=== PATIENT | female | born 1980 ===

== ENCOUNTER 2016-09-18 12:32 | Inpatient (IN) | payer MEDICAID ==
[2016-09-18 13:02] VITALS: BMI 34.3
[2016-09-18] MEDS ORDERED: ceFAZolin 2 GM in Sodium Chloride 0.9% 100 ML IVPB ONE ×2 (13:07→14:30)
[2016-09-18] MEDS: Lactated Ringer's 1,000 ML IV SCH ×2 (13:10→14:00)
[2016-09-18] MEDS ORDERED: Sodium Chloride 0.9% 1,000 ML IV SCH (13:15)
[2016-09-18 14:12] LABS: BASO % 0.4 % (0.0-2.0); EOS # 0.1 K/uL (0.0-0.7); EOS % 1.3 % (0.0-4.0); LYMPH # 1.6 K/uL (1.0-4.3); LYMPH % 17.3 % (20.0-40.0); MEAN CELL VOLUME 92.6 fl (81.0-99.0); MEAN CORPUSCULAR HEMOGLOBIN 31.1 pg (27.0-31.0); MEAN CORPUSCULAR HGB CONC 33.5 g/dL (33.0-37.0); MEAN PLATELET VOLUME 8.3 fl (7.2-11.7); MONO # 0.5 K/uL (0.0-0.8); MONO % 5.5 % (0.0-10.0); NEUT # 6.9 K/uL (1.8-7.0); NEUT % 75.5 % (50.0-75.0); RED CELL DISTRIBUTION WIDTH 13.5 % (11.5-14.5); WHITE BLOOD COUNT 9.1 K/uL (4.8-10.8)
[2016-09-18] MEDS ORDERED: Oxytocin 30 units/LR 500ML 30 U/500 ML BAG IV ONE (14:12)
[2016-09-18] MEDS ORDERED: Oxytocin 20 units in LR 2,000 ML IV ONE (14:12)
--- NOTE | 2016-09-18 14:38 | OBADHP ---
Datetime: 09/18/2016 13:22 Admit Comment, IP Provider: 35 yo at 39 weeks GA, OPAL 09/25/16 confirmed with 2nd trimester US pr esents to [facility] for scheduled repeat . pt had previous 3 with no complications. rep orts +FM. denies VB, CTX or LOF. denies headache, dizziness, nausea, vomiting, chest pain, dyspnea or leg swelling. pt is GBS neg. past ob hx: x 3, last one in 2014 at 39 weeks with baby's wt 8 lbs 2 oz. 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 past sx hx: none social hx: denies smoking, drinking alcohol or recreational drug use. allergies: no drug allergies, allergies to apples, peach and cherries...causes rash. Assessment: 35 yo at 39 weeks GA, OPAL 09/25/16 confirmed with 2nd trimester US presents to [facility] for scheduled repeat . Plan: Admit to unit initiate scheduled protocol. IV fluids continue heart monitor cbc type and screen Sultan Barajas, PGY 1 Pelvic Type - PN: Adequate Extremities - PN: Normal Abdomen - PN: Normal Back - PN: Normal Lungs - PN: Normal Heart - PN: Normal Neurologic - PN: Normal HEENT - PN: Normal General - PN: Normal FHR - Baseline A Provider: 135 Gestation - Est Wks by US: 39.0 IP Hx Assessment: The History has been Reviewed and is Current Vital Signs Provider: Reviewed IP Chief Complaint: Scheduled Section NICHD Variability Prov Fetus A: Moderate 6-25bpm NICHD Accel Fetus A IP Provider: [id number] FHR Category Provider Fetus A: Category I NICHD Decel Fetus A IP Provider: None Genitourinary Exam: Normal DTRs - PN: Normal IP Adm Impression: Term, intrauterine ; No Active Labor IP Admit Plan: Admit to unit; Initiate Section protocol
[2016-09-18] MEDS ORDERED: Morphine 5 mg/10 ml preservative-free Inj(Duramorph) ONE (14:40)
[2016-09-18] MEDS ORDERED: DiphenhydrAMINE 50 mg/ml Inj IVP PRN (15:36)
[2016-09-18] MEDS ORDERED: Oxytocin 30 units/LR 500ML 30 U/500 ML BAG IV SCH (17:31)
[2016-09-18] MEDS ORDERED: Oxycodone/Acetaminophen 5/325 mg Tab PO PRN ×2 (17:31)
[2016-09-18 20:39] LABS: HEMATOCRIT 27.9 % (34.0-47.0); MEAN CELL VOLUME 93.1 fl (81.0-99.0); MEAN CORPUSCULAR HEMOGLOBIN 30.9 pg (27.0-31.0); MEAN CORPUSCULAR HGB CONC 33.2 g/dL (33.0-37.0); RED CELL DISTRIBUTION WIDTH 13.6 % (11.5-14.5); WHITE BLOOD COUNT 14.5 K/uL (4.8-10.8)
[2016-09-19] MEDS ORDERED: Lactated Ringer's 1,000 ML IV SCH (03:30)
[2016-09-19 06:17] LABS: HEMATOCRIT 26.4 % (34.0-47.0); MEAN CELL VOLUME 93.4 fl (81.0-99.0); MEAN CORPUSCULAR HEMOGLOBIN 31.3 pg (27.0-31.0); MEAN CORPUSCULAR HGB CONC 33.5 g/dL (33.0-37.0); RED CELL DISTRIBUTION WIDTH 13.6 % (11.5-14.5)
--- NOTE | 2016-09-19 14:11 | OP ---
PROCEDURE DATE: 09/18/2016 PREOPERATIVE DIAGNOSIS: Term with previous section x3, desires permanent sterilization. POSTOPERATIVE DIAGNOSIS: Term with previous section x3, desires permanent sterilization. Delivered. PROCEDURE: Repeat Section, Bilateral Tubal Ligation, Lysis of Adhesions SURGEON: Dr. Mario Vásquez. RESTAURANT KITCHEN AND SERVICE MANAGER: Dr. Sebastian Scott TYPE OF ANESTHESIA: Spinal. ESTIMATED BLOOD LOSS: 1000 mL. INTRAVENOUS FLUID: 1600 mL lactated Ringer's. URINE OUTPUT: 500 mL, clear after procedure. CLOSURE: Shantell. COMPLICATIONS: None. FINDINGS: A live female with Apgars of 9 and 9, delivered at 3:19 p.m. in vertex presentation with amniotic fluid clear, weighs 3520 grams. DESCRIPTION OF PROCEDURE: The patient was taken to the operating room and given spinal anesthesia without difficulty. She was then prepped and draped in the normal sterile fashion in a dorsal supine position with leftward tilt. A Pfannenstiel skin incision was then made to the previous scar with the scalpel and carried through the underlying fascia with the Bovie. The fascia was then incised in the midline and this incision was extended laterally using the Bovie. The inferior aspect of the fascial incision was then grasped with Lenora clamps, elevated and the underlying rectus muscles were dissected off sharply with the Bovie, then bluntly. Attention was then turned to the superior aspect of the fascial incision, which in a similar fashion, was dissected off with the Bovie, then bluntly. The rectus muscles were then meticulously in the midline. The peritoneum was then entered bluntly. At this time, multiple adhesions of the omentum were then seen to the anterior abdominal wall. These were then taken down with free ties and cautery. Bleeding vessels on the muscle were then also identified at this time and these were also ligated, and with this, good hemostasis was then noted. Adhesions of the bladder to the lower uterine segment was also identified and this was taken down meticulously after which the bladder blade was inserted. The lower uterine segment was identified and entered in a transverse fashion with the scalpel. This incision was then extended cephalocaudally, bluntly and the membranes were then ruptured, the was delivered atraumatically. The nose and mouth were suctioned on the abdomen. The cord was doubly clamped and cut, and the was handed off to the waiting delivery coordinator. Cord blood was then taken. The adhesions to the fundus of the uterus were then taken down meticulously using the Metzenbaum scissors and cautery. After this, the uterus was exteriorized and cleared off all clots and debris. The uterine incision was then closed with 1 Vicryl in a running locked fashion, and two further [id number] sutures were then placed. Good hemostasis was noted. Following this, copious irrigation was performed. The attention was then turned to the tubes at which time a tubal ligation was performed using a 2-0 chromic suture, for a darion procedure bilaterally. The segments on the right and left tube were handed off of the field for pathology and hemostasis was achieved at the cut portion of the tube using the cautery. Irrigation was then performed and the uterus was returned to the abdomen. The gutters were cleared off all clots and debris. Inspection of the uterine incision and the site of the bilateral tubal ligation revealed good hemostasis. The muscle and peritoneum were then re-approximated using a 2-0 Vicryl suture in a running fashion. Good hematosis was noted. The fascia was approximated using 0 Vicryl in a running fashion bilaterally to the midline. The Bovie was used to obtain good hemostasis on the subcutaneous fat layer and this layer was also closed with three interrupted stitches using a 3-0 plain suture. The skin was then closed with shantell and the incision was covered with a sterile dressing. The patient tolerated the procedure well. Sponge, lap, and needle counts were correct x4. Ancef 2 g was given preoperatively. The patient was taken to the recovery room in stable condition. There was no injury to the bladder, bowel, ureter or baby. Due to the nature of this case and as the patient had three previous sections, an early childhood teacher assistant was requested. My early childhood teacher assistant Dr. Scott was present for the entirety of this case from the initial incision to the patient's transfer to the recovery room. He aided with the lysis of adhesions, the tubal ligation, entry into the abdominal wall to the uterus, delivery of the baby and closure of the uterus and abdominal wall as well. He provided good exposure to ensure good hemostasis throughout the case and delivery of the baby. This procedure could not have been performed without his assistance. Mario Vásquez MD GA[facility]
[2016-09-19] MEDS: Simethicone 80 mg Chewtab PO PRN (22:12)
[2016-09-19] MEDS: Docusate-Senna 50 mg-8.6 mg Tab PO SCH (22:13)
[2016-09-20] MEDS: Docusate-Senna 50 mg-8.6 mg Tab PO SCH (22:02)
[2016-09-21] MEDS: Simethicone 80 mg Chewtab PO PRN (10:21)
--- NOTE | 2016-09-21 11:37 | OBDCSUM ---
Datetime: 09/21/2016 07:24 Discharged to, Provider: Home Follow up at, Provider: [facility] Disch Instr Activity: Normal activity Disch Instr Diet: Regular Discharge Instructions, Provider: Routine instructions given Discharge Diagnosis, Provider: Term Delivered Follow up in weeks, Provider: 1 week Disch Referrals: None Disch Activity Restrictions: No exercising; No lifting; Minimize stair-climbing; No sexual activity; Nothing in vagina - [place], tampons, douche Discharge Comment, Provider: - Continue PNV 1 tab PO OD -Ibuprofen 600 mg PO 1 tab Q6h prn for moderate pain. -Percocet 5/325 mg PO 1 tab Q6h prn for severe pain. - Iron sulfate 325 mg BID for anemia. -Ambulate with caution, vaginal rest, no heavy lifting, avoid stairs, if excessive bleeding or fev er despite Tylenol, go to ER. -F/U with clinic in 1 week. OB Hospitalist note: This pt was seen and examined by me. Agree with above note. DREW
--- NOTE | 2016-09-21 11:37 | OBPPN ---
Datetime: 09/21/2016 07:22 PP Pain Prov: Within normal limits PP Nausea Prov: Denies PP Flatus Prov: Yes PP BM Prov: Yes PP Breasts Prov: Normal PP Heart Prov: Normal PP Lungs Prov: Normal PP Abdomen/Uterus Prov: Normal PP Lochia Prov: Normal PP Extremities Prov: Normal PP C/S Incision Prov: Normal PP Progress Prov: Normal PP Impression Prov: Normal progression PP Plan Prov: Discharge PP Progress Note Prov: This is a 35 y/o now who had a scheduled repeated on 09/18/16 with no complications. Pt evaluated bed side, feeling well. Pt tolerating PO, with no difficulties passing gasses, lochia less than menses, had a bowel movement, voiding and ambulating wi th no difficulties. Pain is well controlled with medications. Pt denies fever, H/A, CP, SOB, abdomina l pain or dysuria. O: VS WNL. PE: Gen: A_O, resting comfortable on beb, NAD. Lungs: CTAB, No W/R/R. CV: RRR, S1 and S2 present. ABD: BS +, firm fundus below umbilicus, incision is clean, dry and intact. EXT: no edema, non-tender calves. A_P: 35 y/o F POD 3, S/P , pt feeling well. Pt will be discharged today. Pt encouraged to continue breast feed. Hugo guillen PGY-1 OB Hospitalist note: This pt was seen and examined by me. Agree with above note. DREW PARDO PP Procedures: None Vital Signs Provider PP: Reviewed; Within Normal Limits
[2016-09-21 12:06] VITALS: BP 97/53; PULSE 70; RESP 19; TEMP 98.9
== END 2016-09-21 16:11 | disposition home or self-care (01) | DRG 370 ==
LOC: H.EROB2 12:32 → H.EROB 13:34 → H.OB/GYN 18:17
PROVIDERS: ADMIT Obstetrics & Gynecology; ATTEND Obstetrics & Gynecology
PROC: 10D00Z1 Extraction of Products of Conception, Low, Open Approach (ICD-10-PCS; principal; 2016-09-18)
PROC: 0UB70ZZ Excision of Bilateral Fallopian Tubes, Open Approach (ICD-10-PCS; 2016-09-18)
PROC: 4A1HXCZ Monitoring of Products of Conception, Cardiac Rate, External Approach (ICD-10-PCS; 2016-09-18)
DX: O34.211 Maternal care for low transverse scar from previous cesarean delivery (principal); O99.013 Anemia complicating pregnancy, third trimester; E55.9 Vitamin D deficiency, unspecified; D53.9 Nutritional anemia, unspecified; Z3A.39 39 weeks gestation of pregnancy; Z30.2 Encounter for sterilization; Z37.0 Single live birth; O09.523 Supervision of elderly multigravida, third trimester